=== PATIENT | female | born 1975 | race Caucasian/White ===

== ENCOUNTER 2018-10-26 14:27 | Emergency (ER) | payer OTHER ==
[~2018-10-26] VITALS: Ht 175.3 cm; Wt 74.8 kg
[2018-10-26] MEDS ORDERED: PENICILLIN VK500 MG PO (14:39)
[2018-10-26 15:15] VITALS: BP 133/67
== END 2018-10-26 15:16 | disposition home or self-care (01) ==
LOC: M.ERS 14:27
DX: S83.8X2A Sprain of other specified parts of left knee, initial encounter (principal); F17.200 Nicotine dependence, unspecified, uncomplicated; Z88.1 Allergy status to other antibiotic agents; Z86.73 Personal history of transient ischemic attack (TIA), and cerebral infarction without residual deficits; X50.1XXA Overexertion from prolonged static or awkward postures, initial encounter; Y93.89 Activity, other specified; Y92.89 Other specified places as the place of occurrence of the external cause; Y99.8 Other external cause status